=== PATIENT | female | born 1960 | race Caucasian/White ===

== ENCOUNTER → 2019-07-12 07:44 | Outpatient (BNVA) | payer OTHER, SELFPAY | PROVIDERS: Family Provider Family Medicine; Visit Provider Nurse Practitioner Psychiatric/Mental Health | DX: F33.41 Major depressive disorder, recurrent, in partial remission (principal); F41.8 Other specified anxiety disorders; F51.11 Primary hypersomnia | CPT/HCPCS: 99213 ==

== ENCOUNTER → 2020-01-09 08:41 | Outpatient (BNVA) | payer OTHER, SELFPAY | PROVIDERS: Family Provider Family Medicine; Visit Provider Nurse Practitioner Psychiatric/Mental Health | DX: F33.41 Major depressive disorder, recurrent, in partial remission (principal); F41.8 Other specified anxiety disorders; F51.11 Primary hypersomnia | CPT/HCPCS: 99213 ==

== ENCOUNTER → 2020-06-17 08:34 | Outpatient (BNVA) | payer OTHER, SELFPAY | PROVIDERS: Family Provider Family Medicine; Visit Provider Nurse Practitioner Psychiatric/Mental Health | DX: F33.41 Major depressive disorder, recurrent, in partial remission (principal); F41.8 Other specified anxiety disorders; F51.11 Primary hypersomnia | CPT/HCPCS: 99214 ==

== ENCOUNTER 2023-09-24 13:46 | Emergency (ER) | payer OTHER, SELFPAY ==
[2023-09-24 13:51] VITALS: BP 119/79; PULSE 97; RESP 18; O2SAT 96; BMI 35.3
--- NOTE | 2023-09-24 13:56 | ECG_ITS ---
[facility] Test Date: 2023-09-24 Pat Name: Lee Fitzpatrick Department: Room: Gender: Female Dining Manager: : [id number] Requested By: Dar Hinojosa Order Number: [id number] Elysia MD: Garrett Ortiz M.D. Measurements Intervals [place] Rate: 93 P: 59 [place]: 196 QRS: 50 QRSD: 88 T: 36 QT: 355 QTc: 443 Interpretive Statements SINUS RHYTHM POSSIBLE LEFT ATRIAL ENLARGEMENT [-0.1mV P-WAVE IN V1/V2] NONSPECIFIC T-WAVE ABNORMALITY Compared to ECG 10/12/2014 19:40:33 T-wave abnormality now present Electronically Signed On 09-24-2023 20:06:59 CDT by Garrett Ortiz M.D. [id number]
--- NOTE | 2023-09-24 15:00 | W.ED.ALLEREA ---
HPI - Allergic Reaction General: Chief complaint: Allergic Reaction Stated complaint: allergic reaction Time Seen by Provider: 09/24/23 14:45 Source: patient Mode of arrival: ambulatory Limitations: no limitations History of Present Illness: HPI narrative: 63-year-old female states she was stung by a wasp this morning she states that she started having a full body rash she does have an urticarial rash to trunk and arms. States started to feel some warmth in her face she had some chest pain is since resolved she denies any shortness of breath denies any throat swelling. She has not taken any meds at home. Associated symptoms: Deny abdominal pain, nausea or vomiting Related Data Home Medications Medication Instructions Recorded Confirmed ascorbate calcium (vitamin C) 500 1 gm PO DAILY 07/11/19 02/17/22 mg tablet carvedilol 6.25 mg tablet (Coreg) 6.25 mg PO BID 07/11/19 02/17/22 flaxseed oil 1,000 mg capsule 1,000 mg PO DAILY 07/11/19 02/17/22 levothyroxine 112 mcg tablet 112 mcg PO DAILY 07/11/19 02/17/22 (Synthroid) multivitamin 1 tab PO DAILY 07/11/19 02/17/22 omeprazole magnesium 20 mg 20 mg PO DAILY 07/11/19 02/17/22 tablet,delayed release (Prilosec OTC) vitamin B complex (B 1 tab PO DAILY 07/11/19 02/17/22 Complex-Vitamin B12 tablet) melatonin 3 mg capsule 5 mg PO .QHS PRN 12/15/20 02/17/22 Previous Rx's Medication Instructions Recorded bupropion HCl 150 mg 24 hr tablet, 150 mg PO QAM #90 tabs 02/17/22 extended release (Wellbutrin XL) bupropion HCl 300 mg 24 hr tablet, 300 mg PO QAM #90 tabs 02/17/22 extended release (Wellbutrin XL) lorazepam 0.5 mg tablet (Ativan) 0.5 mg PO DAILY PRN anxiety #60 02/17/22 tabs trazodone 50 mg tablet 50 mg PO .QHS PRN sleep #90 tabs 02/17/22 prednisone 50 mg tablet 50 mg PO DAILY #5 tabs 09/24/23 Allergies Allergy/AdvReac Type Severity Reaction Status Date / Time Iodinated Contrast Media Allergy ALGY-Rash Verified 09/24/23 13:51 Review of Systems Const: Denies: fever(s), chills, body aches or change in appetite ENMT: Denies: throat pain or dental pain Card: Reports: chest pain Resp: Denies: dyspnea GI: Denies: abdominal pain, nausea, vomiting or diarrhea Musc: Denies: neck pain or back pain Skin/Breast: Reports: rash Neuro: Denies: headache(s) PFSH ED PFSH: Medical History Primary hypersomnia Major depressive disorder, recurrent episode, in partial remission with anxious distress Physical Exam Const: COMMON NORMALS: patient oriented x3 HENMT: COMMON NORMALS: normocephalic and atraumatic HEAD & SCALP: normocephalic and atraumatic Neck/C-Spine: COMMON NORMALS: full ROM and supple Chest: COMMONS NORMALS: normal inspection of the chest Resp: COMMON NORMALS: normal respiratory effort, No retractions, No use of accessory muscles and clear to auscultation bilaterally AUSCULTATION: clear to auscultation bilaterally Cardio: COMMON NORMALS: regular rate, regular rhythm and No murmurs present (Cardio) RATE: regular rate RHYTHM: regular rhythm Extremity: COMMON NORMALS: normal to inspection and full ROM Neuro: COMMON NORMALS: patient oriented x3, moves all extremities and no focal motor deficits Psych: COMMON NORMALS: mental status grossly normal, Normal thought process present and cooperative THOUGHT PROCESS: Normal thought process present Skin: COMMON NORMALS: no wounds NARRATIVE SKIN EXAM: Patient presents here with rash to trunk and arms is urticarial in nature she has a rash on her face as well no lip or tongue swelling Course Vital Signs: Vital signs: Vital Signs Pulse Rate 86 09/24/23 16:27 Respiratory Rate 18 09/24/23 13:51 Blood Pressure 119/79 09/24/23 13:51 Pulse Oximetry 99 09/24/23 16:27 Oxygen Delivery Me thod Room Air 09/24/23 16:27 MDM - Allergic Reaction Medical Decision Making Patient presents here with allergic reaction her rash is much improved here she does have some swelling in her hand at the site of the wasp sting she is continue to take Pepcid Benadryl at home ice her hand she is no signs of airway involvement or anaphylaxis she stable for discharge follow-up with PCP return if worsening. Medical Records I reviewed the patient's medical records. No radiology studies performed this visit Discharge Plan Discharge Patient Disposition: Home Clinical Impression: Urticaria, Allergic reaction, Wasp sting Condition: Stable Prescriptions: New prednisone 50 mg tablet 50 mg PO DAILY Qty: 5 0RF No Action omeprazole magnesium [Prilosec OTC] 20 mg tablet,delayed release (DR/EC) 20 mg PO DAILY levothyroxine [Synthroid] 112 mcg tablet 112 mcg PO DAILY carvedilol [Coreg] 6.25 mg tablet 6.25 mg PO BID Rx Instructions: must administer with a meal/food ascorbate calcium (vitamin C) 500 mg tablet 1 gm PO DAILY multivitamin Tablet 1 tab PO DAILY vitamin B complex [B Complex-Vitamin B12] Tablet 1 tab PO DAILY flaxseed oil 1,000 mg capsule 1,000 mg PO DAILY Rx Instructions: administer with a meal melatonin 3 mg capsule 5 mg PO .QHS PRN bupropion HCl [Wellbutrin XL] 300 mg tablet extended release 24 hr 300 mg PO QAM Qty: 90 2RF Rx Instructions: Take one tablet every morning bupropion HCl [Wellbutrin XL] 150 mg tablet extended release 24 hr 150 mg PO QAM Qty: 90 2RF Rx Instructions: Take one tablet every morning trazodone 50 mg tablet 50 mg PO .QHS PRN (Reason: sleep) Qty: 90 1RF Rx Instructions: Take one tablet at bedtime as needed for sleep lorazepam [Ativan] 0.5 mg tablet 0.5 mg PO DAILY PRN (Reason: anxiety) Qty: 60 3RF Rx Instructions: Take one tablet daily as needed for anxiety Discharge Orders: Discharge ED (Routine); Ordered 09/24/23 Ordered By: Dar Hinojosa Referrals: Jer Taylor MD [Family Provider] - 4-7 days Discharge Diet: Advance as tolerated Discharge Activity: Resume usual activity Patient Instructions: Insect Bite or Sting (ED), General Allergic Reaction (ED) Coding Level of Care Code ED Client Customer Manager for Tommy Garcia
[2023-09-24] MEDS: sodium chloride 0.9% 1,000 ML 999 ML IV (15:03)
[2023-09-24] MEDS: diphenhydrAMINE 50 mg/mL SDV 1mL IVP (15:03)
[2023-09-24] MEDS: methylPREDNISolone sod succ 125 mg/2 mL INJ IVP (15:04)
[2023-09-24] MEDS: famotidine 20 mg/2 mL INJ 40 MG IVP (15:05)
[2023-09-24 16:27] VITALS: PULSE 86; O2SAT 99
== END 2023-09-24 17:33 | disposition home or self-care (01) ==
PROVIDERS: Emergency Provider Emergency Medicine; Family Provider Family Medicine
DX: L50.0 Allergic urticaria (principal); T63.461A Toxic effect of venom of wasps, accidental (unintentional), initial encounter
CPT/HCPCS: 93005; 96374; 96375; 99284; J1200; J2919; J3490; J7030